=== PATIENT | female | born 1970 | race Two or more races ===

== ENCOUNTER 2018-03-25 05:18 | Day surgery (SDC) | payer OTHER ==
[~2018-03-25 05:18] MED LIST: ACTEMRA80 MG/4 ML IV; ALLERGY10 M1 PO; AVAPRO150 MG PO; CLONAZEPAM1 MG PO; LEVO-T50 MCG PO; LEVSIN0.125 MG PO; METFORMIN HCL500 MG PO; NABUMETONE750 MG PO; PEXEVA10 MG PO; RESTORIL15 MG PO; SECTRAL PO; ZANTAC300 MG PO
[2018-03-25] MEDS ORDERED: ULTRACET PO (09:11)
== END 2018-03-25 11:15 | disposition home or self-care (01) ==
LOC: CIR.AMB 05:18
DX: K80.10 Calculus of gallbladder with chronic cholecystitis without obstruction (principal)

== ENCOUNTER 2018-03-29 12:05 | Emergency (ER) | payer OTHER ==
[~2018-03-29] VITALS: Ht 165.1 cm; Wt 87.1 kg
[~2018-03-29 12:05] MED LIST changes: +ULTRACET PO
== END 2018-03-29 18:10 | disposition home or self-care (01) ==
LOC: ER 12:05
DX: T81.4XXA Infection following a procedure, initial encounter (principal)